=== PATIENT | female | born 1985 | race African-American/Black ===

== ENCOUNTER 2020-12-14 17:09 | Emergency (ER) | payer SELFPAY ==
[~2020-12-14] VITALS: Ht 160 cm; Wt 93.0 kg
[2020-12-14 17:14] VITALS: BP 159/101
[2020-12-14] MEDS ORDERED: DIPH25CA83 MT (18:02)
[2020-12-14] MEDS ORDERED: PERM60CR4 TP (18:02)
== END 2020-12-14 19:04 | disposition home or self-care (01) ==
LOC: ER 17:09
DX: S00.86XA Insect bite (nonvenomous) of other part of head, initial encounter (principal); S90.466A Insect bite (nonvenomous), unspecified lesser toe(s), initial encounter; W57.XXXA Bitten or stung by nonvenomous insect and other nonvenomous arthropods, initial encounter; Y93.89 Activity, other specified; Y92.59 Other trade areas as the place of occurrence of the external cause; Z88.0 Allergy status to penicillin
CPT/HCPCS: 99281